=== PATIENT | male | born 1965 | race Caucasian/White ===

== ENCOUNTER 2018-07-25 07:12 | Day surgery (SDC) | payer BC ==
[2018-07-25] MEDS ORDERED: MIDAZOLAM 1 MG/ML 2 ML INJ (08:25)
[2018-07-25] MEDS ORDERED: PROPOFOL 20 ML (08:25)
[2018-07-25] MEDS ORDERED: FENTAnyl 50 MCG/ML VIAL (08:25)
[2018-07-25] MEDS ORDERED: ETOMIDATE 20 MG INJ (08:26)
== END 2018-07-25 16:08 | disposition home or self-care (01) ==
LOC: GIL 07:12
DX: K29.70 Gastritis, unspecified, without bleeding (principal); K31.7 Polyp of stomach and duodenum; K63.5 Polyp of colon; R19.5 Other fecal abnormalities; K64.4 Residual hemorrhoidal skin tags
CPT/HCPCS: 45380; 88305